=== PATIENT | male | born 1955 | race Caucasian/White ===

== ENCOUNTER → 2016-12-16 08:27 | Outpatient (CLI) | payer MEDICARE | END | disposition home or self-care (01) | LOC: D.CT 08:27 | DX: K42.9 Umbilical hernia without obstruction or gangrene (principal) ==

== ENCOUNTER → 2018-07-22 18:15 | Outpatient (CLI) | payer MEDICARE ==
[~2018-07-22 18:15] MED LIST: ALBUTEROL SULF8.5 GM INH; FLOMAX0.4 MG PO; LISINOPRIL5 MG PO; PROTONIX40 MG PO; SYMBICORT 16010.2 GM INH
[2018-08-13 09:05] VITALS: BMI 39.8
== END | disposition home or self-care (01) ==
LOC: D.LABREF 18:15
DX: R31.9 Hematuria, unspecified (principal)

== ENCOUNTER → 2018-07-31 08:26 | Outpatient (CLI) | payer MEDICARE ==
[2018-08-13 09:05] VITALS: BMI 39.8
== END | disposition home or self-care (01) ==
LOC: D.US 08:26
DX: R31.21 Asymptomatic microscopic hematuria (principal)

== ENCOUNTER 2018-08-13 08:00 | Day surgery (SDC) | payer MEDICARE ==
[2018-08-11 12:31] LABS: HEMATOCRIT 44.1 % (42.0-54.0); HEMOGLOBIN 14.9 g/dL (13.5-17.5); MCH 31.7 pg (26.0-34.0); MCHC 33.8 g/dL (31.0-37.0); MCV 93.8 fL (80.0-100.0); MEAN PLATELET VOLUME 9.6 fL (7.4-10.4); RBC 4.7 10x6/uL (4.20-6.10); RDW 13.6 % (11.5-14.5); WBC 5.2 10x3/uL (4.8-10.8)
[~2018-08-13] VITALS: Ht 185.4 cm; Wt 136.5 kg
[~2018-08-13 08:00] MED LIST changes: -FLOMAX0.4 MG PO; -LISINOPRIL5 MG PO; -PROTONIX40 MG PO
[2018-08-13] MEDS ORDERED: FLOMAX0.4 MG PO (08:50)
[2018-08-13] MEDS ORDERED: PROTONIX40 MG PO (08:50)
[2018-08-13] MEDS ORDERED: LISINOPRIL5 MG PO (08:50)
[2018-08-13 09:05] VITALS: BP 118/61; Ht 185.4 cm; Wt 136.5 kg
--- NOTE | 2018-08-13 11:15 | NUR ---
REC'D FROM SURGERY. FAMILY AT BEDSIDE. FL TRAY BROUGHT TO PT. URINAL BROUGHT TO PT.
--- NOTE | 2018-08-13 11:45 | NUR ---
TOLERATED FL TRAY. VOIDING WITHOUT DIFFICULTY. IV DC'D WITH CATHETER INTACT.
--- NOTE | 2018-08-13 11:55 | NUR ---
WRITTEN AND VERBAL DC INST. GIVEN TO PT. VERBALIZED UNDERSTANDING.
--- NOTE | 2018-08-13 12:30 | NUR ---
DC'D HOME WITH FAMILY VIA PRIVATE VEHICLE. TAKEN TO VEHICLE VIA WC. STABLE AT TIME OF DC.
--- NOTE | 2018-08-13 13:10 | OP ---
PATIENT NAME: CARINA VERAS MEDICAL RECORD: [id number] LOCATION:D[facility] ADMISSION DATE: SURGEON: CHIQUITA TSAI MD DATE OF OPERATION: 08/13/2018 SURGEON: Chiquita Tsai MD ANESTHESIA: TIVA by Gary Simons CRNA DIAGNOSIS: Obstructive BPH with PSA 1.89. SUMMER 30 mL prostate. IPSS is 24 and quality of life score is 6. PROCEDURE: Urolith times 4 implants. FINDINGS: Bilateral lateral lobe hyperplasia of the prostate with no median lobe. Single ureteral orifices bilaterally, but no bladder tumors. ESTIMATED BLOOD LOSS: Minimal. CLINICAL HISTORY: This is a 62-year-old male, who has had issues with urinary frequency and difficulty voiding for many years. He has been on tamsulosin for 2 years. In the daytime, he has to void every 30 minutes and there is urgency without urge incontinence. On SUMMER, his prostate is 30 mL in size. His PSA is 1.89. With the tamsulosin on board, he has an IPSS score of 24 and quality of life score of 6. He wishes to have the UroLift procedure done. HE IS ALLERGIC TO CODEINE. 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 DESCRIPTION OF PROCEDURE: The patient was given IV sedation. He was placed in the dorsal lithotomy position and prepped and draped. The UroLift cystoscope was inserted and the findings are as outlined above. About 1.5 cm distal to the bladder neck, we inserted in the lateral anterior urethra 2 UroLift units. These were placed, one on each side. Then, at the level of the verumontanum on each side, we placed 1 UroLift unit. This gave a total of 4 UroLift units. We now had a nice wide open anterior urethral channel. The bladder was emptied through the scope and the scope was removed. The patient will be seen in followup in 1 month's time. TRANSINT:[id number] Voice Confirmation ID: [id number] DOCUMENT ID: [id number] CHIQUITA TSAI MD at 1310 CC: [id number] DICTATION DATE: 08/13/18 1114 CONTRACT ATTORNEY: 08/13/18 1252 REG [facility] [address] [place] [address]
== END 2018-08-13 12:30 | disposition home or self-care (01) ==
LOC: D.OPS 08:00 → D.PAN 12:30 → D.OPS 14:30 → D.PAN 14:30
PROVIDERS: Anesthesiology; ATTEND Urology
DX: N40.1 Benign prostatic hyperplasia with lower urinary tract symptoms (principal); N13.8 Other obstructive and reflux uropathy; R35.0 Frequency of micturition; R39.15 Urgency of urination; Z88.5 Allergy status to narcotic agent; Z01.812 Encounter for preprocedural laboratory examination